=== PATIENT | male | born 1990 | race Caucasian/White ===

== ENCOUNTER 2022-04-07 23:35 | Emergency (ER) | payer OTHER ==
[~2022-04-07] VITALS: Ht 165.1 cm; Wt 90.7 kg
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
--- NOTE | 2022-04-08 01:53 | NUR ---
Patient discharged to home in stable condition. Written and verbal after care instructions given. Patient verbalizes understanding of instruction. Pt ambulatory with a steady gait
[2022-04-08 01:55] VITALS: BP 150/98
== END 2022-04-08 01:55 | disposition home or self-care (01) ==
LOC: ER 23:41
DX: S13.4XXA Sprain of ligaments of cervical spine, initial encounter (principal); S20.212A Contusion of left front wall of thorax, initial encounter; S00.83XA Contusion of other part of head, initial encounter; F17.200 Nicotine dependence, unspecified, uncomplicated; X83.8XXA Intentional self-harm by other specified means, initial encounter; Y93.89 Activity, other specified; Y92.89 Other specified places as the place of occurrence of the external cause; Y99.8 Other external cause status
CPT/HCPCS: 70360-TC; 70450-TC; 71100-TC

== ENCOUNTER 2022-06-02 14:07 | Emergency (ER) | payer OTHER ==
[~2022-06-02] VITALS: Ht 165.1 cm; Wt 93.0 kg
--- NOTE | 2022-06-02 14:36 | NUR ---
DR PATTON AT BEDSIDE
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
[2022-06-02 15:30] LABS: BASOPHILS % (AUTO) 0.4 % (0.0-2.0); EOSINOPHILS % (AUTO) 1.9 % (0.0-6.0); HEMATOCRIT 42 % (39-51); HEMOGLOBIN 13.9 g/dL (13.5-17.5); LYMPHOCYTES # (AUTO) 1.5 K/uL (0.8-4.8); LYMPHOCYTES % (AUTO) 21.6 % (20.0-44.0); MEAN CORPUSCULAR HGB CONC 33 g/dl (31.0-36.0); MEAN CORPUSCULAR VOLUME 90 fL (80-96); MONOCYTES # (AUTO) 0.6 K/uL (0.1-1.30); MONOCYTES % (AUTO) 8.3 % (2.0-12.0); NEUTROPHILS # (AUTO) 4.8 K/uL (1.8-8.9); NEUTROPHILS % (AUTO) 67.8 % (43.0-81.0); PLATELET COUNT (AUTO) 221 K/uL (150-450); RED BLOOD CELL COUNT(AUTO) 4.73 MIL/uL (4.5-6.0)
[2022-06-02 15:43] LABS: CALCIUM, SERUM 9.2 mg/dL (8.5-10.1); CARBON DIOXIDE 25 mmol/L (21-32); CHLORIDE 102 mmol/L (98-107); GLUCOSE 106 mg/dL (74-106); POTASSIUM 4.1 mmol/L (3.5-5.1); SODIUM SERUM 136 mmol/L (136-145); UREA NITROGEN, BLOOD 15 mg/dL (7-18)
[2022-06-02 15:49] LABS: ALANINE AMINOTRANSFERASE 18 U/L (12-78); ALBUMIN 3.9 g/dL (3.4-5.0); ALKALINE PHOSPHATASE 74 U/L (46-116); ASPARTATE AMINOTRANSFERASE 18 U/L (15-37); BILIRUBIN,DIRECT 0.1 mg/dL (0.0-0.2); BILIRUBIN,TOTAL 0.5 mg/dL (0.2-1.0); TOTAL PROTEIN, SERUM 7.3 g/dL (6.4-8.2)
[2022-06-02 15:51] LABS: ALCOHOL, BLOOD < 3 mg/dL (0-0)
--- NOTE | 2022-06-02 20:43 | NUR ---
CALLED [facility] CR[facility]IS TEAM FOR EVAL
--- NOTE | 2022-06-02 22:13 | NUR ---
PT TAKEN TO CT VIA CYN
[2022-06-03 03:57] LABS: BILIRUBIN,URINE NEGATIVE (NEGATIVE); COLOR,URINE YELLOW (YELLOW); LEUKOCYTE ESTERASE ,URINE NEGATIVE (NEGATIVE); NITRITE, URINE NEGATIVE (NEGATIVE); PROTEIN,URINE NEGATIVE (NEGATIVE); UGLUCOSE NEGATIVE (NEGATIVE); UROBILINOGEN,URINE 0.2 EU/dL (0.2)
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
--- NOTE | 2022-06-03 11:29 | NUR ---
was seen by crisis, 5150 hold broken. pt is aaox4, denies si/hi. ambulatory w steady gait. discharge home in stable condition.
[2022-06-03 11:31] VITALS: BP 132/70
== END 2022-06-03 11:31 | disposition home or self-care (01) ==
LOC: ER 16:31
DX: R45.851 Suicidal ideations (principal); S01.81XA Laceration without foreign body of other part of head, initial encounter; X83.8XXA Intentional self-harm by other specified means, initial encounter; Y92.89 Other specified places as the place of occurrence of the external cause; Y99.8 Other external cause status; F84.0 Autistic disorder; F41.9 Anxiety disorder, unspecified; I10 Essential (primary) hypertension; Z20.822 Contact with and (suspected) exposure to COVID-19
CPT/HCPCS: 99285; 70450; 85025; 80048; 80076; 81003; 36415; 87426; 80143; 80320; 80307; C9803; G0480

== ENCOUNTER 2023-11-17 07:23 | Emergency (ER) | payer OTHER ==
[~2023-11-17] VITALS: Ht 167.6 cm; Wt 98.0 kg
[2023-11-17 07:53] LABS: BASOPHILS % (AUTO) 0.4 % (0.0-2.0); EOSINOPHILS % (AUTO) 0.5 % (0.0-6.0); HEMATOCRIT 41 % (39-51); HEMOGLOBIN 13.7 g/dL (13.5-17.5); LYMPHOCYTES # (AUTO) 1.4 K/uL (0.8-4.8); LYMPHOCYTES % (AUTO) 18.3 % (20.0-44.0); MEAN CORPUSCULAR HEMOGLOBIN 30 PG (26.0-33.0); MEAN CORPUSCULAR HGB CONC 34 g/dl (31.0-36.0); MEAN CORPUSCULAR VOLUME 89 fL (80-96); MONOCYTES # (AUTO) 0.5 K/uL (0.1-1.30); MONOCYTES % (AUTO) 7.1 % (2.0-12.0); NEUTROPHILS # (AUTO) 5.6 K/uL (1.8-8.9); NEUTROPHILS % (AUTO) 73.7 % (43.0-81.0); PLATELET COUNT (AUTO) 214 K/uL (150-450); RED BLOOD CELL COUNT(AUTO) 4.57 MIL/uL (4.5-6.0); RED CELL DISTRIBUTION WIDTH 13.6 % (11.5-15.0); WHITE BLOOD COUNT (AUTO) 7.6 K/uL (4.3-11.0)
[2023-11-17] MEDS: IV NS 0.9% 1,000 ML BAG IV ONE (07:59)
[2023-11-17 08:04] LABS: INR 1.03 (0.91-1.10); PARTIAL THROMBOPLASTIN TIME 27.3 SEC (24.3-34.3); PROTHROMBIN TIME 10.9 SECS (9.2-11.1)
[2023-11-17 08:06] LABS: SERUM AMMONIA 13 umol/L (11-32)
[2023-11-17 08:10] LABS: CALCIUM, SERUM 9.4 mg/dL (8.5-10.1); CARBON DIOXIDE 25 mmol/L (21-32); CHLORIDE 106 mmol/L (98-107); GLUCOSE 131 mg/dL (74-106); POTASSIUM 3.5 mmol/L (3.5-5.1); SODIUM SERUM 140 mmol/L (136-145); UREA NITROGEN, BLOOD 12 mg/dL (7-18)
[2023-11-17 08:22] LABS: ALCOHOL, BLOOD < 3 mg/dL (0-10)
[2023-11-17 08:24] LABS: ACETAMINOPHEN <10 ug/ml (10-30); ALANINE AMINOTRANSFERASE 30 U/L (12-78); ALBUMIN 3.7 g/dL (3.4-5.0); ALKALINE PHOSPHATASE 87 U/L (46-116); ASPARTATE AMINOTRANSFERASE 19 U/L (15-37); BILIRUBIN,DIRECT 0.2 mg/dL (0.0-0.2); BILIRUBIN,TOTAL 0.7 mg/dL (0.2-1.0); SALICYLATE 0.4 mg/dL (2.8-20.0); TOTAL PROTEIN, SERUM 7.4 g/dL (6.4-8.2)
[2023-11-17 08:55] LABS: APPEARANCE,URINE CLEAR (CLEAR); BILIRUBIN,URINE NEGATIVE (NEGATIVE); BLOOD, URINE NEGATIVE Ery/uL (NEGATIVE); COLOR,URINE YELLOW (YELLOW); KETONES,URINE NEGATIVE (NEGATIVE); LEUKOCYTE ESTERASE ,URINE NEGATIVE (NEGATIVE); NITRITE, URINE NEGATIVE (NEGATIVE); PROTEIN,URINE NEGATIVE (NEGATIVE); UGLUCOSE NEGATIVE (NEGATIVE); UROBILINOGEN,URINE 0.2 EU/dL (0.2)
[2023-11-17 09:05] LABS: BARBITURATE, URINE NEGATIVE (NEGATIVE); BENZODIAZEPINE, URINE NEGATIVE (NEGATIVE); COCCAINE, URINE NEGATIVE (NEGATIVE); OPIATE, URINE NEGATIVE (NEGATIVE); PHENCYCLIDINE SCREEN,URINE NEGATIVE (NEGATIVE)
[2023-11-17 09:06] LABS: AMPHETAMINE, URINE POSITIVE (NEGATIVE); CANNABINOID, URINE POSITIVE (NEGATIVE)
[2023-11-17 21:44] VITALS: BP 136/90; TEMP 98.5; O2SAT 95
== END 2023-11-17 21:45 | disposition short-term general hospital (02) ==
LOC: ER 07:34
DX: G93.41 Metabolic encephalopathy (principal); I10 Essential (primary) hypertension; F41.9 Anxiety disorder, unspecified; F84.0 Autistic disorder; R41.82 Altered mental status, unspecified; R53.83 Other fatigue; F17.200 Nicotine dependence, unspecified, uncomplicated
CPT/HCPCS: 99285; 96360; 93005 ×2; 71045; 70450; 82140; 85025; 80048; 80076; 83735; 84100; 81003; 36415; 84443; 84484; 85730; 80143; 80320; 80307; J7030; A4223; G0480

== ENCOUNTER 2024-01-18 22:58 | Inpatient (IN) | payer OTHER ==
[~2024-01-18] VITALS: Ht 165.1 cm; Wt 96.6 kg
[2024-01-19] VITALS (8 sets, daily range): BP systolic 136–158; BP diastolic 64–103; TEMP 98.1–98.7; O2SAT 96–98
--- NOTE | 2024-01-19 00:20 | NUR ---
BIBFATHER FOR OVERDOSE ON SERAQUEL, PT STATES HE TOOK 30-40 400MG ER PILLS. DENIES SI AT TRAIGE BUT DOES ADMIT TO RECENT INCREASE IN STRESS. PT IS ALERT AND ORIENTED. RR EVEN AND NON LABORED. DENIES ANY DISCOMFORT AT THIS TIME. CONNECTED TO POX AND HEART MONITOR. VSS. SEIZURE PRECAUTIONS IN PLACE.
--- NOTE | 2024-01-19 00:23 | NUR ---
DR LOPEZ AT BED SIDE
--- NOTE | 2024-01-19 00:27 | NUR ---
Richelle marsh in [facility] - 01/19/24 at 0044 by ANSUHL S/W MERLINE FRANCO , PROVIDED W/ VERBAL CLINICALS, AUTH TO ADMIT GIVEN, AUTH#[id number]
--- NOTE | 2024-01-19 00:44 | NUR ---
IV LINE ESTABLISHED, [id number]
--- NOTE | 2024-01-19 00:46 | NUR ---
CALLED POISON CONTROL WITH THE FOLLOWING RECOMMENDATIONS: - OBSERVE PT FOR AT LEAST 12 HOURS - EKG Q 4-6 HOURS. MGSO4 PRN FOR QTC>500 -BENZOS PRN FOR SEIZURE - LABS INCLUDING CHEMISTRY, TYLENOL LEVEL, ASA LEVEL, SERUM ALCOHOL, URINE TOX DR LOPEZ MADE AWARE.
[2024-01-19 00:48] LABS: BASOPHILS # (AUTO) 0.1 K/uL (0.0-0.2); BASOPHILS % (AUTO) 0.5 % (0.0-2.0); EOSINOPHILS # (AUTO) 0.1 K/uL (0.0-0.7); EOSINOPHILS % (AUTO) 0.6 % (0.0-6.0); HEMATOCRIT 43 % (39-51); HEMOGLOBIN 14.4 g/dL (13.5-17.5); LYMPHOCYTES # (AUTO) 1.8 K/uL (0.8-4.8); LYMPHOCYTES % (AUTO) 15.9 % (20.0-44.0); MEAN CORPUSCULAR HEMOGLOBIN 30 PG (26.0-33.0); MEAN CORPUSCULAR HGB CONC 33 g/dl (31.0-36.0); MEAN CORPUSCULAR VOLUME 90 fL (80-96); MONOCYTES # (AUTO) 0.8 K/uL (0.1-1.30); MONOCYTES % (AUTO) 7.5 % (2.0-12.0); NEUTROPHILS # (AUTO) 8.4 K/uL (1.8-8.9); NEUTROPHILS % (AUTO) 75.5 % (43.0-81.0); PLATELET COUNT (AUTO) 244 K/uL (150-450); RED BLOOD CELL COUNT(AUTO) 4.81 MIL/uL (4.5-6.0); RED CELL DISTRIBUTION WIDTH 13.7 % (11.5-15.0); WHITE BLOOD COUNT (AUTO) 11.1 K/uL (4.3-11.0)
--- NOTE | 2024-01-19 00:49 | NUR ---
FATHER, JAY: [phone] MOTHER, YVONNE: [phone]
[2024-01-19 00:57] LABS: CALCIUM, SERUM 9.1 mg/dL (8.5-10.1); CARBON DIOXIDE 25 mmol/L (21-32); CHLORIDE 104 mmol/L (98-107); CREATININE 0.8 mg/dL (0.6-1.3); GLUCOSE 107 mg/dL (74-106); POTASSIUM 3.8 mmol/L (3.5-5.1); SODIUM SERUM 137 mmol/L (136-145); UREA NITROGEN, BLOOD 17 mg/dL (7-18)
[2024-01-19 01:08] LABS: ACETAMINOPHEN <10 ug/ml (10-30); ALANINE AMINOTRANSFERASE 31 U/L (12-78); ALBUMIN 4.3 g/dL (3.4-5.0); ALCOHOL, BLOOD < 3 mg/dL (0-10); ALKALINE PHOSPHATASE 80 U/L (46-116); ASPARTATE AMINOTRANSFERASE 21 U/L (15-37); BILIRUBIN,DIRECT 0.1 mg/dL (0.0-0.2); BILIRUBIN,TOTAL 0.7 mg/dL (0.2-1.0); SALICYLATE 0.7 mg/dL (2.8-20.0); TOTAL PROTEIN, SERUM 7.7 g/dL (6.4-8.2)
--- NOTE | 2024-01-19 02:11 | NUR ---
DR LOPEZ ON THE PHONE WITH DR ALY FROM [facility]
--- NOTE | 2024-01-19 02:29 | NUR ---
provided mother w/ update and plan of care
[2024-01-19 02:43] LABS: APPEARANCE,URINE CLEAR (CLEAR); BILIRUBIN,URINE NEGATIVE (NEGATIVE); BLOOD, URINE NEGATIVE Ery/uL (NEGATIVE); COLOR,URINE YELLOW (YELLOW); KETONES,URINE NEGATIVE (NEGATIVE); LEUKOCYTE ESTERASE ,URINE NEGATIVE (NEGATIVE); NITRITE, URINE NEGATIVE (NEGATIVE); PH,URINE 5.5 (5.0-8.0); PROTEIN,URINE NEGATIVE (NEGATIVE); UGLUCOSE NEGATIVE (NEGATIVE); UROBILINOGEN,URINE 0.2 EU/dL (0.2)
[2024-01-19 02:57] LABS: AMPHETAMINE, URINE POSITIVE (NEGATIVE); BARBITURATE, URINE NEGATIVE (NEGATIVE); BENZODIAZEPINE, URINE NEGATIVE (NEGATIVE); CANNABINOID, URINE POSITIVE (NEGATIVE); COCCAINE, URINE NEGATIVE (NEGATIVE); OPIATE, URINE NEGATIVE (NEGATIVE); PHENCYCLIDINE SCREEN,URINE NEGATIVE (NEGATIVE)
--- NOTE | 2024-01-19 03:18 | NUR ---
s/w mindi gave accepting info: going to [facility] er to er accepted by dr hamilton , report # [phone]
--- NOTE | 2024-01-19 03:23 | NUR ---
[facility] - WILL CALL ACTIVATED ETA @6000
--- NOTE | 2024-01-19 03:32 | NUR ---
report given to Maureen TUCKER supercharger mechanic at [facility]
--- NOTE | 2024-01-19 06:36 | NUR ---
[facility] is now declining the patient, giving veral auth to admit here
--- NOTE | 2024-01-19 07:37 | NUR ---
[facility] called, new eta [phone]
--- NOTE | 2024-01-19 08:00 | NUR ---
NURSING SUP CALLED FOR TELE BED. PER SUPIRVISOR PATIENT NEEDS 1:1 SITTER.
--- NOTE | 2024-01-19 08:07 | NUR ---
CALLED [facility] [phone] CANCELLED TRANSPORT.
--- NOTE | 2024-01-19 08:11 | NUR ---
CALLED NORMA FLORES, ON HIS WAY.
[2024-01-19] MEDS ORDERED: DEXT25CA PO (08:31)
[2024-01-19] MEDS ORDERED: QUET300T72 PO (08:31)
[2024-01-19] MEDS ORDERED: ACETAMINOPHEN 325 MG TABLET PO PRN (09:30)
[2024-01-19] MEDS ORDERED: MAG HYDROX/AL HYDROX/SIMETH 30 ML UDC PO PRN (09:30)
[2024-01-19] MEDS ORDERED: ONDANSETRON HCL/PF 4 MG/2 ML VIAL IVP PRN (09:30)
[2024-01-19] MEDS ORDERED: Z GUARD REMEDY 4 OZ OINT TP PRN (09:30)
[2024-01-19] MEDS ORDERED: MAGNESIUM HYDROXIDE 30 ML UDC PO PRN (09:30)
--- NOTE | 2024-01-19 10:28 | NUR ---
"licensed clinical social worker consultation: licensed clinical social worker consultation requested due to overdose. The patient was alert and oriented x3. Patient was calm and cooperative during the assessment for this medical underwriter. The patient stated prior to being at the hospital he was having a Panick attack due to stress and then took a bunch of pills but does not remember what he took. 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 The patient stated that he was feeling overwhelmed which is why he took those pills. Patient stated he resides at [address] [place] [address] ([phone]) with his mother. The patient said he is fully ambulatory and does not work as he takes care of his mother multimedia programmer. Patient denied having any mental illnesses. Patient denied any substance abuse, but patients labs indicate that patient is positive for amphetamine and cannabinoids. Patient denied any visual/auditory hallucinations. Patient denied any SI/HI ideation. The patient was accepting of substance abuse resources provided to him. DC PLAN: Per ER physician Doctor Gini patient will be admitted to the hospital for medical reasons Shelters: [facility] Provider: [facility] [place] Address: [address] [place] [address] # of Beds: 47 Population Served: [facility] 6 | [facility] Shira Parmar [place] Provider: [facility] Address: [address] [place] [address] # of Beds: 66 Population Served: [facility] [place] Provider: [facility] Address: [address] [id number]# of Beds: 56 Population Served: [facility] Provider: [facility] Address: [address] [address] # of Beds: 49 Population Served: Katelyn Hygiene: [facility]: [address]. [place] ; [facility] [address] [facility] ; [facility] 9304 [facility] . Food Resources: [facility] [employer] [facility] at [facility]- [address] [place]; Meet Each Need with D[facility] ([facility]) [address] Jair Hamilton; [facility] Food [facility] 1178 [facility]; [facility] 5468 [facility]."
[2024-01-19] MEDS ORDERED: LORAZEPAM INJ 2 MG/ML VIAL ONE (12:26)
--- NOTE | 2024-01-19 12:30 | NUR ---
PT FOUND BY NURSE W/ INVOLUNTARY BODY JERKING, ALTERED AND TACHYCARDIC W/ NOTED LOWER LIP LACERATION. DR KUMAR AT BEDSIDE FOR EVAL.
--- NOTE | 2024-01-19 12:35 | NUR ---
VERBAL ORDER FORM MD FOR 1MG ATIVAN IV, ORDER CANCELED AT BEDSIDE BY .
[2024-01-19] MEDS: LORAZEPAM INJ 2 MG/ML VIAL IV PRN ×2 (12:39→15:34)
[2024-01-19] MEDS: IV NS 0.9% 1,000 ML BAG IV ONE (12:40)
--- NOTE | 2024-01-19 12:40 | NUR ---
PT TAKEN TO CT VIA CYN
--- NOTE | 2024-01-19 12:58 | NUR ---
PT RETURNED FROM CT VIA [facility]
--- NOTE | 2024-01-19 14:15 | NUR ---
DR HAMILTON MADE AWARE OF HR 136. WAITING FOR ORDERS.
[2024-01-19 14:50] LABS: BASOPHILS % (AUTO) 0.1 % (0.0-2.0); EOSINOPHILS % (AUTO) 0.1 % (0.0-6.0); HEMATOCRIT 39 % (39-51); HEMOGLOBIN 13.1 g/dL (13.5-17.5); LYMPHOCYTES # (AUTO) 0.9 K/uL (0.8-4.8); LYMPHOCYTES % (AUTO) 11.7 % (20.0-44.0); MEAN CORPUSCULAR HEMOGLOBIN 30 PG (26.0-33.0); MEAN CORPUSCULAR HGB CONC 34 g/dl (31.0-36.0); MEAN CORPUSCULAR VOLUME 89 fL (80-96); MONOCYTES # (AUTO) 0.6 K/uL (0.1-1.30); MONOCYTES % (AUTO) 7.4 % (2.0-12.0); NEUTROPHILS # (AUTO) 6.5 K/uL (1.8-8.9); NEUTROPHILS % (AUTO) 80.7 % (43.0-81.0); PLATELET COUNT (AUTO) 200 K/uL (150-450); RED BLOOD CELL COUNT(AUTO) 4.38 MIL/uL (4.5-6.0)
--- NOTE | 2024-01-19 14:51 | NUR ---
NS 125ML/HR PRN PER DR HAMILTON. THE ORDER READ BACK, VERIFIED. NOTED AND CARRIED OUT.
--- NOTE | 2024-01-19 14:55 | NUR ---
COVID SWAB DONE AND SENT TO THE LAB
--- NOTE | 2024-01-19 15:00 | NUR ---
DR HAMILTON AT BEDSIDE TO EVALUATE PATIENT. NOTED MORE ALTERED AND TACHYCARDIC. DR HAMILTON WANTS PATIENT UPGRADED TO ICU.
[2024-01-19] MEDS: IV NS 0.9% 1,000 ML BAG IV PRN (15:18)
[2024-01-19 15:39] LABS: CALCIUM, SERUM 8.5 mg/dL (8.5-10.1); CREATININE 0.9 mg/dL (0.6-1.3); MAGNESIUM 1.8 mg/dL (1.8-2.4); PHOSPHORUS 2.7 mg/dL (2.5-4.9); POTASSIUM 3.7 mmol/L (3.5-5.1)
--- NOTE | 2024-01-19 16:35 | NUR ---
report given to varun for madeline
--- NOTE | 2024-01-19 16:59 | NUR ---
pt transported to icu with acls protocols in place.
--- NOTE | 2024-01-19 17:05 | NUR ---
PRESTO LOG OPERATORUNIT CLERK NOTES PATIENT TRANSFERRED FROM [facility] TO [facility]. A&OX1, MUMBLES WORDS. ON RA SATURATION 97%. PIV RAC AND LEFT HAND GAUGE 20, PATENT AND INTACT. NS STARTED AT 125 ML/HR. BRUISE NOTED ON THE RIGHT PERIORBITAL AREA. SEIZURE AND SUICIDAL PRECAUTIONS IN PLACE. FAXED FACE SHEET TO [facility]IT, REQUESTED PSYCHIATRIC CONSULT, DR AVILA WORKING TODAY. BELONGINGS SHEET IN THE CHART. SAFETY MEASURES IN PLACE. Addendum: 01/19/24 at 1902 by CEDRICK HILL RN PRESTO LOG OPERATORUNIT CLERK NOTES PATIENT TRANSFERRED FROM [facility] TO [facility]. ASLEEP, AROUSABLE TO VOICE, WHEN AWAKE A&OX1, MUMBLES WORDS. ON RA SATURATION 97%. ST ON THE MONITOR HR 115-125 BPM. PIV RAC AND LEFT HAND GAUGE 20, PATENT AND INTACT. NS STARTED AT 125 ML/HR. BRUISE NOTED ON THE RIGHT PERIORBITAL AREA. SEIZURE AND SUICIDAL PRECAUTIONS IN PLACE. FAXED FACE SHEET TO [facility], REQUESTED PSYCHIATRIC CONSULT, DR AVILA WORKING TODAY. BELONGINGS SHEET IN THE CHART. SAFETY MEASURES IN PLACE.
[2024-01-19] MEDS: IV NS 0.9% 1,000 ML IV PRN (17:29)
--- NOTE | 2024-01-19 18:55 | NUR ---
CASH SALES AUDIT CLERK CLOSING NOTES PATIENT IN BED. ASLEEP, AROUSABLE TO VOICE, WHEN AWAKE A&OX1, MUMBLES WORDS. ON RA SATURATION 97%. ST ON THE MONITOR HR 115-125 BPM. PIV RAC AND LEFT HAND GAUGE 20, PATENT AND INTACT, RUNNING NS STARTED AT 125 ML/HR. SEIZURE AND SUICIDAL PRECAUTIONS IN PLACE, 1:1 SITTER AT THE BEDSIDE, SPECIAL OBSERVATION RECORD Q15 MINUTES RECORD BEING CHARTED. SAFETY MEASURES IN PLACE: BED LOCKED IN THE LOWEST POSITION, SIDE RAILS UP X3, BED ALARM ON.
--- NOTE | 2024-01-19 18:55 | NUR ---
FRONT END APPLICATION DEVELOPER NOTES SPOKE OVER THE PHONE TO PATIENT'S FATHER JAY, HE EXPLAINED THAT DUE TO AUTISM PATIENT GETS AGITATED EASILY IN UNEXPECTED SITUATIONS. PT HAD AN ARGUMENT WITH HIS GIRLFRIEND, BECAME AGITATED, TOOK THE PILLS BUT IMMEDIATELY REPORTED THAT AND WAS ABLE TO REGURGITATE 7. PER THE DAD PATIENT WAS TRYING TO CALM HIMSELF DOWN. 1855 SPOKE TO PATIENT'S MOTHER YVONNE, PROVIDED AN UPDATE
--- NOTE | 2024-01-19 19:45 | NUR ---
ICU/SPECIAL EDUCATION SUPERINTENDENT RECIEVED REPORT FROM DAY CAITLIN MEANS. PT REQUIRES A SITTER. PT APPEARS TO BE ASLEEP, WITH PERIODS OF RESTLESS BEHAVIOR, SWINGING ARMS AROUND WITH PERIODS OF YELLING OUT BURST. SEIZURE PRECAUTIONS ARE IN PLACE. WILL MONITOR THIS PERSON.
--- NOTE | 2024-01-19 21:00 | NUR ---
ICU/GLASS SETTER PT WAS HITTING HIMSELF WITH CLOSED FIST. THIS IS THE SIDE OF FACE WHERE BRUISE AND SWELLING IS FOUND. THE RIGHT CORNER OF EYE AND FACE. THERE IS PHOTO DOCUMENTATION IN PTS CHART.
[2024-01-19] MEDS ORDERED: ZOLPIDEM TARTRATE 5 MG TABLET PO PRN (22:00)
--- NOTE | 2024-01-19 22:54 | NUR ---
ICU/SHIRT IRONER GIRLFRIEND CALLED ASKING ABOUT PT. TOLD HER THAT I WASN'T ABLE TO PROVIDE INFORMATION EXCEPT THAT PT IS STABLE. GIRLFRIEND THEN BECAME AGGRESSIVE AND YELLING. AT THE END OF THE PHONE CONVERSATION SHE WAS YELLING, HAD TO HANG UP PHONE.
[2024-01-20] VITALS (29 sets, daily range): BP systolic 109–162; BP diastolic 62–119; TEMP 98.3–99.2; O2SAT 93–98
--- NOTE | 2024-01-20 00:40 | NUR ---
ICU/OFFENDER JOB RETENTION SPECIALIST PT WAS PULLED UP AND REPOSIONED, PT IS MOVING AROUND IN BED AND HAS MADE A FEW ATTEMPTS TO GET OUT OF BED WITH FEET AND LEGS HANGING OVER THE SIDE RAILS. PT REQUIRES FREQUENT ORT. TO PUT LEGS BACK AND TO CALM DOWN.
--- NOTE | 2024-01-20 02:00 | NUR ---
ICU/DIRECTOR OF PREMIUM SEAT SALES PT YELLS OUT AND RAMBLES, MOVES ARMS IN THE AIR. UNABLE TO UNDERSTAND WHAT IS BEING SAID. PT REQUIRES SITTER AT BEDSIDE TO PREVENT SELF HARM. PT HAS STOP HITTING HIMSELF.
--- NOTE | 2024-01-20 04:10 | NUR ---
ICU/CATH LAB RADIOLOGY TECHNICIAN ASKED LAB TO COME BACK LATER, PT APPEARS TO BE MORE RESTLESS AND AGITATED MORE THAN BEFORE. PERIODS OF OUTBURST AND YELLING, SWINGING ARMS
--- NOTE | 2024-01-20 06:42 | NUR ---
ICU/HEATING ELEMENT WINDER AM LABS WERE DRAWN. AWAIT FOR ANY ABNORMAL RESULTS.
--- NOTE | 2024-01-20 07:00 | NUR ---
RN NOTES RECEIVED PT ON BED, LEANDERZY, KNOWS HIS NAME, FOLLOWS SIMPLE COMMAND ,WITH PERIODS OF RESTLESS BEHAVIOR, SWINGING ARMS AROUND , ON RA, NO SOB NOTED, O2 SAT WNL, ON TELE ST HR IN 110'S , IV SITE CDI, NS AT 125CC/HR , PT IS 1:1 CARE , SEIZURE PRECAUTIONS ARE IN PLACE. CONTINUE TO MONITOR
[2024-01-20 07:19] LABS: BASOPHILS % (AUTO) 0.2 % (0.0-2.0); EOSINOPHILS % (AUTO) 0.5 % (0.0-6.0); HEMATOCRIT 38 % (39-51); HEMOGLOBIN 12.8 g/dL (13.5-17.5); LYMPHOCYTES # (AUTO) 1.2 K/uL (0.8-4.8); LYMPHOCYTES % (AUTO) 14.9 % (20.0-44.0); MEAN CORPUSCULAR HEMOGLOBIN 30 PG (26.0-33.0); MEAN CORPUSCULAR HGB CONC 33 g/dl (31.0-36.0); MEAN CORPUSCULAR VOLUME 89 fL (80-96); MONOCYTES # (AUTO) 0.6 K/uL (0.1-1.30); MONOCYTES % (AUTO) 7.7 % (2.0-12.0); NEUTROPHILS # (AUTO) 6.4 K/uL (1.8-8.9); NEUTROPHILS % (AUTO) 76.7 % (43.0-81.0); PLATELET COUNT (AUTO) 193 K/uL (150-450); RED BLOOD CELL COUNT(AUTO) 4.32 MIL/uL (4.5-6.0); RED CELL DISTRIBUTION WIDTH 14.2 % (11.5-15.0); WHITE BLOOD COUNT (AUTO) 8.4 K/uL (4.3-11.0)
[2024-01-20 07:54] LABS: CALCIUM, SERUM 8.2 mg/dL (8.5-10.1); MAGNESIUM 1.9 mg/dL (1.8-2.4); PHOSPHORUS 2.4 mg/dL (2.5-4.9); POTASSIUM 3.8 mmol/L (3.5-5.1)
[2024-01-20] MEDS: HALOPERIDOL LACTATE INJ 5 MG/ML VIAL IM PRN (08:28)
[2024-01-20] MEDS ORDERED: diphenhydrAMINE HCL 50 MG/ML VIAL IV PRN (08:30)
[2024-01-20] MEDS: diphenhydrAMINE HCL 50 MG/ML VIAL IM PRN (08:32)
--- NOTE | 2024-01-20 12:25 | NUR ---
RN NOTES PT RESTLESS AND AGITATED, YELLING OUT, ATIVAN 1MG ,IV GIVEN PER ORDER , CONTINUE TO MONITOR
[2024-01-20 12:58] LABS: THYROID STIMULATING HORMONE 2.19 uIU/mL (0.358-3.74)
--- NOTE | 2024-01-20 14:57 | NUR ---
YVONNE CHRISTY [phone] CALLED TRANSFERED TO ICU.
[2024-01-20] MEDS: Sodium Phosphate 15 MMOL in IV NS 0.9% 245 ML IV SCH (15:36)
[2024-01-20] MEDS ORDERED: K PHOS NEUTRAL 250 MG TABLET PO ONE (16:00)
--- NOTE | 2024-01-20 16:13 | NUR ---
paint factory worker note: paint factory worker was unable to meet with this patient. paint factory worker will follow up at a later time.
--- NOTE | 2024-01-20 18:00 | NUR ---
RN NOTES PT REMAINS ,CONFUSED, RESTLESS, FOLLOWS COMMAND AT TIMES , PULLING ON IV SITES, ON SZ PRECAUTIONS , IVF AT 125CC/HR RUNNING, SAFETY MEASURES IN PLACED, 1:1 OBSERVATION , IDA. SOFT WRIST RESTRAINS ON FOR PT SAFETY, WILL ENDORSE TO STRIP MACHINE OPERATOR NURSE FOR CONTINUITY OF CARE .
--- NOTE | 2024-01-20 19:10 | NUR ---
DUCK FARMER RCD PT W/ DX OVERDOSE; PT IS ST ON MONITOR. STRONG PALPABLE PULSES NOTED. ON ROOM AIR CLEAR LUNG SOUNDS. DIAPER IN PLACE PT DOES VERBALIZE NEEDS. NS @ 125 ML/HR VIA R AC IV. PT ON BSWR TO PREVENT SELF INJURIES PER PREVIOUS REPORTS PT HAS BEEN HITTING SELF. BRUISING NOTED ON RIGHT EYE. AT THIS TIME PT IS STRUGGLING TO SIT UP WELL TRYING TO GET OUT OF BED PT IS UNABLE TO BE REORIENTED DOES NOT VERBALIZE UNDERSTANDING. ONLY MUMBLES. ATIVAN 1 MG IV GIVEN AT THIS TIME. PT WITH 1:1 NURSING AT THIS TIME.
--- NOTE | 2024-01-20 19:15 | NUR ---
ANDROID DEVELOPER WILL APPLY SCDs WHEN PUMP IS AVAILABLE
--- NOTE | 2024-01-20 20:35 | NUR ---
ENGINE LATHE TENDER RCD CALL FROM PTS MOTHER; UPDATED ON PTS CONDITION.
--- NOTE | 2024-01-20 22:18 | NUR ---
LIAISON INSPECTION LABORATORY ASSISTANT PT CONTINUES TO BE SEVERELY AGITATED. ATTEMPTING TO GET OUT OF BED. SPEAKING IN COMPLETE SENTENCES AND THEN MUMBLES. WILL NOT OPEN EYES AND UNABLE TO BE REORIENTED.
--- NOTE | 2024-01-20 23:51 | NUR ---
ORNAMENTAL PLASTER STICKER PT NOTED WITH SATURATION SUSTAINING 89%; 02 2L NC APPLIED.
[2024-01-21] VITALS (19 sets, daily range): BP systolic 108–147; BP diastolic 5–100; TEMP 98.1–98.9; O2SAT 93–97
--- NOTE | 2024-01-21 01:00 | NUR ---
MOTION AND TIME STUDY TEACHER PT APPEARING MORE CALM AT THIS TIME. BSWR REMOVED. 1:1 NURSING REMAINS.
[2024-01-21 04:50] LABS: BASOPHILS % (AUTO) 0.4 % (0.0-2.0); EOSINOPHILS # (AUTO) 0.1 K/uL (0.0-0.7); EOSINOPHILS % (AUTO) 0.8 % (0.0-6.0); HEMATOCRIT 37 % (39-51); HEMOGLOBIN 12.2 g/dL (13.5-17.5); LYMPHOCYTES # (AUTO) 1.4 K/uL (0.8-4.8); LYMPHOCYTES % (AUTO) 15.7 % (20.0-44.0); MEAN CORPUSCULAR HEMOGLOBIN 30 PG (26.0-33.0); MEAN CORPUSCULAR HGB CONC 33 g/dl (31.0-36.0); MEAN CORPUSCULAR VOLUME 90 fL (80-96); MONOCYTES # (AUTO) 0.7 K/uL (0.1-1.30); MONOCYTES % (AUTO) 8.6 % (2.0-12.0); NEUTROPHILS # (AUTO) 6.4 K/uL (1.8-8.9); NEUTROPHILS % (AUTO) 74.5 % (43.0-81.0); PLATELET COUNT (AUTO) 198 K/uL (150-450); RED CELL DISTRIBUTION WIDTH 14.2 % (11.5-15.0); WHITE BLOOD COUNT (AUTO) 8.6 K/uL (4.3-11.0)
[2024-01-21 05:15] LABS: CALCIUM, SERUM 8.2 mg/dL (8.5-10.1); CREATININE 0.9 mg/dL (0.6-1.3); MAGNESIUM 1.7 mg/dL (1.8-2.4); PHOSPHORUS 3.2 mg/dL (2.5-4.9); POTASSIUM 3.7 mmol/L (3.5-5.1)
--- NOTE | 2024-01-21 06:41 | NUR ---
BINDERY MACHINE SETTER PER LAB RESULTS GLUCOSE IS 69 PT GIVEN 120 ML OF ORANGE JUICE. TOLERATED WELL. PT ALERT SPEAKING IN FULL SENTENCES. Addendum: 01/21/24 at 0644 by TETO ESCALONA RN 240 ML OF JUICE WAS GIVEN
--- NOTE | 2024-01-21 07:10 | NUR ---
DIRECTOR HEART OPENING NOTES PT IN BED, ASLEEP. AROUSABLE TO VOICE, FOLLOWS COMMANDS. ON NC AT 2 LPM, SATURATION 96%. NSR ON THE MONITOR HR IN 90S BPM. PIV ACCESSES RAC AND LEFT HAND GAUGE 20, BOTH PATENT AND INTACT, RUNNING NS AT 125 ML/HR. ON SEIZURE PRECAUTIONS. SAFETY MEASURES IN PLACE, INCLUDING BED ALARM, ON 1:1 OBSERVATION.
[2024-01-21] MEDS ORDERED: Magnesium 1 GM/2 ML VIAL IV ONE ×2 (08:00)
[2024-01-21] MEDS: Magnesium 1GM/D5W 100ML PREMIX 100 ML IV SCH (08:26)
[2024-01-21 10:10] LABS: FOLIC ACID 11.5 ng/mL (>3.0)
[2024-01-21] MEDS ORDERED: MAGNESIUM OXIDE 400 MG TABLET PO ONE (11:00)
--- NOTE | 2024-01-21 18:58 | NUR ---
MS RN CLOSING NOTES PT IN BED, ASLEEP. AROUSABLE TO VOICE, FOLLOWS COMMANDS. WHEN AWAKE A7OX4. ON RA, SATURATION 96%, NO SOB. PIV ACCESSES RAC GAUGE 20, PATENT AND INTACT, RUNNING NS AT 125 ML/HR. ON SEIZURE PRECAUTIONS. SAFETY MEASURES IN PLACE, INCLUDING BED ALARM, ON 1:1 OBSERVATION.
--- NOTE | 2024-01-21 20:00 | NUR ---
PAPER TWISTER TENDER OPENING NOTES RECEIVED PT IN BED AWAKE A/O X4. WITH GIRLFRIEND AT BEDSIDE (VISITING). ON RA, SATURATION 96%, NO SOB NOTED. IV ACCESS RAC GAUGE 20, PATENT AND INTACT, RUNNING NS AT 125 ML/HR. ON SEIZURE PRECAUTIONS. SAFETY MEASURES IN PLACE, INCLUDING BED ALARM, ON 1:1 OBSERVATION. WILL CONTINUE PLAN OF CARE.
[2024-01-22] VITALS: BP 134/86; TEMP 98.2; O2SAT 99
[2024-01-22 04:00] VITALS: BP 118/77; TEMP 98.2; O2SAT 99
--- NOTE | 2024-01-22 07:36 | NUR ---
MS RN OPENING NOTE RECEIVED PATIENT AWAKE IN BED, A/O X4, ABLE TO MAKE NEEDS KNOW, AFEBRILE, AMBULATORY. ON ROOM AIR, TOLERATING WELL, BREATHING EVENLY AND UNLABORED WITH SPO2 OF 98%. NO SIGNS OF RESPIRATORY DISTRESS NOTED. PT DENIES ANY PAIN OR ANY DISCOMFORTS AT THIS TIME. PT DENIES ANY OR SOB NOTED AT THIS MOMENT. IV ACCESS ON RAC G# 20 WITH RUNNING NS @ 125ML/HR PATENT, INTACT, AND INFUSING WELL WITH NO S/SX OF PHLEBITIS AND INFILTRATION NOTED. PATIENT EXPRESSES NO OTHER NEEDS AT THIS TIME. NO FURTHER CONCERNS OF PRESENT. HOB SLIGHTLY ELEVATED. FALL AND SAFETY MEASURES IMPLEMENTED, BED LOCKED AND IN LOWEST POSITION, SIDE RAILS UP X2, CALL LIGHT AND TRAY TABLE WITHIN EASY REACH. BED ALARM ON. PLAN OF CARE ONGOING.
--- NOTE | 2024-01-22 07:40 | NUR ---
SENIOR PROGRAM ANALYST CLOSING NOTES PT IN BED AWAKE A/O X4. WITH GIRLFRIEND AT BEDSIDE (VISITING). ON RA, SATURATION 96%, NO SOB NOTED. IV ACCESS RAC GAUGE 20, PATENT AND INTACT, RUNNING NS AT 125 ML/HR. ON SEIZURE PRECAUTIONS. SAFETY MEASURES IN PLACE, INCLUDING BED ALARM, ON 1:1 OBSERVATION. ALL NEEDS ATTENDED. ENDORSED TO INCOMING RN FOR CONTINUE PLAN OF CARE CONTINUE PLAN OF CARE.
[2024-01-22 07:50] LABS: BASOPHILS % (AUTO) 0.3 % (0.0-2.0); EOSINOPHILS # (AUTO) 0.2 K/uL (0.0-0.7); EOSINOPHILS % (AUTO) 1.9 % (0.0-6.0); HEMATOCRIT 39 % (39-51); HEMOGLOBIN 12.8 g/dL (13.5-17.5); LYMPHOCYTES # (AUTO) 1.5 K/uL (0.8-4.8); LYMPHOCYTES % (AUTO) 18.9 % (20.0-44.0); MEAN CORPUSCULAR HEMOGLOBIN 30 PG (26.0-33.0); MEAN CORPUSCULAR HGB CONC 33 g/dl (31.0-36.0); MEAN CORPUSCULAR VOLUME 89 fL (80-96); MONOCYTES # (AUTO) 0.7 K/uL (0.1-1.30); MONOCYTES % (AUTO) 8.2 % (2.0-12.0); NEUTROPHILS # (AUTO) 5.7 K/uL (1.8-8.9); NEUTROPHILS % (AUTO) 70.7 % (43.0-81.0); PLATELET COUNT (AUTO) 212 K/uL (150-450); RED BLOOD CELL COUNT(AUTO) 4.34 MIL/uL (4.5-6.0); RED CELL DISTRIBUTION WIDTH 13.6 % (11.5-15.0); WHITE BLOOD COUNT (AUTO) 8.1 K/uL (4.3-11.0)
[2024-01-22 08:00] VITALS: BP 130/80; TEMP 97.9; O2SAT 99
[2024-01-22 08:28] LABS: CALCIUM, SERUM 8.9 mg/dL (8.5-10.1); CREATININE 0.8 mg/dL (0.6-1.3); MAGNESIUM 1.9 mg/dL (1.8-2.4); PHOSPHORUS 2.2 mg/dL (2.5-4.9); POTASSIUM 3.8 mmol/L (3.5-5.1)
[2024-01-22 12:00] VITALS: BP 130/70; TEMP 98; O2SAT 99
[2024-01-22] MEDS: ESCITALOPRAM OXALATE (10 MG) 10 MG TABLET PO SCH (15:04)
[2024-01-22] MEDS: K PHOS NEUTRAL 250 MG TABLET PO ONE (15:29)
[2024-01-22 16:00] VITALS: BP 130/70; TEMP 98; O2SAT 99
--- NOTE | 2024-01-22 18:46 | NUR ---
MS RN CLOSING NOTE PATIENT AWAKE IN BED, A/O X4, ABLE TO MAKE NEEDS KNOW, AFEBRILE, AMBULATORY, SITTER AT BEDSIDE. ON ROOM AIR, TOLERATING WELL, BREATHING EVENLY AND UNLABORED WITH SPO2 OF 99%. NO SIGNS OF RESPIRATORY DISTRESS NOTED. PT DENIES ANY PAIN OR ANY DISCOMFORTS AT THIS TIME. PT DENIES ANY OR SOB NOTED AT THIS MOMENT. IV ACCESS ON RIGHT WRIST G#22-SL AND L HAND G# 24 WITH RUNNING NS @ 125ML/HR PATENT, INTACT, AND INFUSING WELL WITH NO S/SX OF PHLEBITIS AND INFILTRATION NOTED. ALL DUE MEDS GIVEN. CARE RENDERED. KEPT PATIENT CLEAN, COMFORTABLE, AND DRY. PATIENT EXPRESSES NO OTHER NEEDS AT THIS TIME. NO FURTHER CONCERNS OF PRESENT. HOB SLIGHTLY ELEVATED. FALL AND SAFETY MEASURES IMPLEMENTED, BED LOCKED AND IN LOWEST POSITION, SIDE RAILS UP X2, CALL LIGHT AND TRAY TABLE WITHIN EASY REACH. BED ALARM ON. WILL ENDORSE TO [facility] SHIFT NURSE FOR NISA. Addendum: 01/22/24 at 1851 by ELDER LOWRY RN INFORMED DR. JUNG THAT PATIENT WANTS TO GO HOME. DOCTOR RESPONDED THAT IT WONT BE POSSIBLE TODAY BECAUSE PSYCH MEDICATION HAS RESUMED. SHE STATED, IT'S OKAY TO DC TOMORROW. WILL ENDORSE TO ANDROID IOS DEVELOPER NURSE
--- NOTE | 2024-01-22 19:20 | NUR ---
PATIENT LEFT AMA, REFUSED TO SIGN AMA FORM, GIRLFRIEND AT BEDSIDE, SITTER OUTSIDE THE ROOM GIVING HAND OFF REPORT, ASKED HER WHO SHE WAS REFUSED TO ANSWER AND SAID PATIENT IS AUTISTIC, PATIENT SAID HE'S AN ADULT HE HAS THE RIGHT TO DECIDE FOR HIMSELF AND NOBODY HAS THE RIGHT TO FORCED HIM TO STAY, HAD SHED WORKERS SUPERVISOR CALL SECURITY, MANAGING PARTNER SHYLA CHECKED IF HE'S ON 5150, PATIENT IS NOT ON HOLD, STILL PATIENT AND GIRLFRIEND CONTINUED TO LEAVE THE UNIT, STARTED YELLING YOU DON'T HAVE THE RIGHT TO HOLD THE PATIENT IN THE UNIT, ADVISED BY MANAGING PARTNER YELENA TO JUST REMOVED THE ID BAND AND IV, WHEN CHECKED PATIENT HE NO LONGER HAVE IV, REMOVED ARM BAND, SECURITY PRESENT, MOTHER OF THE PATIENT CALLED, AND TALKED TO MANAGING PARTNER YELENA. MANAGING PARTNERCAITLIN REED CALLED DOCTOR FABIANA, PER DOCTOR "IT'S OK IF PATIENT LEFT. THERE'S NOTHING WE CAN DO" PATIENT NOT ON HOLD.
--- NOTE | 2024-01-22 19:25 | NUR ---
MS RN NOTE PATIENT LEFT AMA DESPITE EXPLANATION TO STAY, CALLED TO DR JUNG PSYCHIATRIST AND SPOKE WITH HER STATED WHAT CAN YOU DO CANT STOP HIM LET HIM GO , PATIENT IS NOT ON HOLD , WILL CALL RO DR CLAY TO REPORT HER AND ENDORSED TO CAITLIN FITZGERALD NEXT SHIFT
--- NOTE | 2024-01-22 19:26 | NUR ---
MS RN NOTE KENNETH HAWKINS CALLED FOR PATIENT NOTIFIED THAT PATIENT LEFT AMA STATED THAT WILL CALL HIM
--- NOTE | 2024-01-22 19:46 | NUR ---
INFORMED PRIMARY KERZUMA, REGARDING PATIENT LEFT AMA AND DIDN'T SIGN AMA FORM. FORM GRADER OPERATOR SHYLA MADE AWARE.
[2024-01-22] MEDS ORDERED: QUETIAPINE FUMARATE 100 MG TABLET PO SCH (22:00)
[2024-01-30 08:29] LABS: VITAMIN B1 THIAMINE,WB 124.8
== END 2024-01-22 19:22 | disposition left against medical advice (07) | DRG 817 ==
LOC: ER 23:02 → TRANSITION 01-19 12:01 → ICU 01-19 16:20 → MEDSG1 01-21 15:54
PROVIDERS: ADMIT Student in an Organized Health Care Education/Training Program; ATTEND Student in an Organized Health Care Education/Training Program
DX: T43.592A Poisoning by other antipsychotics and neuroleptics, intentional self-harm, initial encounter (principal); G92.8 Other toxic encephalopathy; G25.3 Myoclonus; E83.39 Other disorders of phosphorus metabolism; R56.9 Unspecified convulsions; F32.A Depression, unspecified; F41.9 Anxiety disorder, unspecified; Y92.9 Unspecified place or not applicable; I10 Essential (primary) hypertension; F84.0 Autistic disorder; F12.90 Cannabis use, unspecified, uncomplicated; D64.9 Anemia, unspecified; F39 Unspecified mood [affective] disorder; Z79.899 Other long term (current) drug therapy
CPT/HCPCS: 36415; 70450-TC; 70486-TC; 80048-TC; 80076-TC; 82607-TC; 82962-TC; 83735-TC; 83921; 84100-TC; 84425; 84443-TC; 85025-TC; A4223; A9563; G0378; G0480; J1200; J1630; J2060; J3475; J7030; J7050

== ENCOUNTER 2024-04-23 07:46 | Inpatient (IN) | payer OTHER ==
[~2024-04-23] VITALS: Ht 165.1 cm; Wt 99.8 kg
[~2024-04-23 07:46] MED LIST: DEXT25CA PO; QUET300T72 PO
[2024-04-23 08:12] LABS: BASOPHILS % (AUTO) 0.1 % (0.0-2.0); EOSINOPHILS % (AUTO) 0.1 % (0.0-6.0); HEMATOCRIT 44 % (39-51); HEMOGLOBIN 14.9 g/dL (13.5-17.5); LYMPHOCYTES # (AUTO) 0.7 K/uL (0.8-4.8); LYMPHOCYTES % (AUTO) 5.3 % (20.0-44.0); MEAN CORPUSCULAR HEMOGLOBIN 30 PG (26.0-33.0); MEAN CORPUSCULAR HGB CONC 34 g/dl (31.0-36.0); MEAN CORPUSCULAR VOLUME 88 fL (80-96); MONOCYTES # (AUTO) 0.8 K/uL (0.1-1.30); MONOCYTES % (AUTO) 6.5 % (2.0-12.0); NEUTROPHILS # (AUTO) 11.4 K/uL (1.8-8.9); PLATELET COUNT (AUTO) 234 K/uL (150-450); RED BLOOD CELL COUNT(AUTO) 5.05 MIL/uL (4.5-6.0); RED CELL DISTRIBUTION WIDTH 13.7 % (11.5-15.0)
[2024-04-23 08:24] LABS: ALANINE AMINOTRANSFERASE 31 U/L (12-78); ALBUMIN 4.4 g/dL (3.4-5.0); ALKALINE PHOSPHATASE 81 U/L (46-116); ASPARTATE AMINOTRANSFERASE 22 U/L (15-37); BILIRUBIN,DIRECT 0.3 mg/dL (0.0-0.2); CALCIUM, SERUM 9.9 mg/dL (8.5-10.1); CARBON DIOXIDE 25 mmol/L (21-32); CHLORIDE 106 mmol/L (98-107); CREATININE 1.3 mg/dL (0.6-1.3); GLUCOSE 119 mg/dL (74-106); POTASSIUM 3.6 mmol/L (3.5-5.1); SODIUM SERUM 142 mmol/L (136-145); UREA NITROGEN, BLOOD 17 mg/dL (7-18)
[2024-04-23 08:34] LABS: ACETAMINOPHEN <10 ug/ml (10-30); SALICYLATE < 2.8 mg/dL (2.8-20.0)
[2024-04-23 08:35] LABS: ALCOHOL, BLOOD < 10 mg/dL (0-10)
[2024-04-23] MEDS ORDERED: LORAZEPAM INJ 2 MG/ML VIAL ONE (09:08)
[2024-04-23] MEDS: LORAZEPAM INJ 2 MG/ML VIAL IV ONE (09:14)
[2024-04-23 09:19] LABS: APPEARANCE,URINE CLEAR (CLEAR); BILIRUBIN,URINE NEGATIVE (NEGATIVE); BLOOD, URINE NEGATIVE Ery/uL (NEGATIVE); COLOR,URINE YELLOW (YELLOW); KETONES,URINE NEGATIVE (NEGATIVE); LEUKOCYTE ESTERASE ,URINE NEGATIVE (NEGATIVE); NITRITE, URINE NEGATIVE (NEGATIVE); PH,URINE 5.5 (5.0-8.0); PROTEIN,URINE NEGATIVE (NEGATIVE); UGLUCOSE NEGATIVE (NEGATIVE); UROBILINOGEN,URINE 0.2 EU/dL (0.2)
[2024-04-23 09:24] LABS: AMPHETAMINE, URINE POSITIVE (NEGATIVE); BARBITURATE, URINE NEGATIVE (NEGATIVE); BENZODIAZEPINE, URINE NEGATIVE (NEGATIVE); COCCAINE, URINE NEGATIVE (NEGATIVE); OPIATE, URINE NEGATIVE (NEGATIVE); PHENCYCLIDINE SCREEN,URINE NEGATIVE (NEGATIVE)
[2024-04-23 09:25] LABS: CANNABINOID, URINE POSITIVE (NEGATIVE)
[2024-04-23] MEDS ORDERED: ONDANSETRON HCL/PF 4 MG/2 ML VIAL IVP PRN (11:30)
[2024-04-23] MEDS ORDERED: Z GUARD REMEDY 4 OZ OINT TP PRN (11:30)
[2024-04-23] MEDS ORDERED: MAGNESIUM HYDROXIDE 30 ML UDC PO PRN (11:30)
[2024-04-23] MEDS ORDERED: ACETAMINOPHEN 325 MG TABLET PO PRN (11:30)
[2024-04-23] MEDS ORDERED: MAG HYDROX/AL HYDROX/SIMETH 30 ML UDC PO PRN (11:30)
[2024-04-23 16:00] VITALS: BP 144/90; TEMP 98.2; O2SAT 96
[2024-04-23] MEDS: IV NS 0.9% 1,000 ML IV PRN (17:55)
[2024-04-23 20:00] VITALS: BP 130/108; TEMP 98.9; O2SAT 97
[2024-04-24] VITALS: BP 135/0; TEMP 98; O2SAT 98
[2024-04-24 04:00] VITALS: BP 125/95; TEMP 98.9; O2SAT 97
[2024-04-24 07:31] LABS: BASOPHILS % (AUTO) 0.2 % (0.0-2.0); EOSINOPHILS % (AUTO) 0.4 % (0.0-6.0); HEMATOCRIT 37 % (39-51); HEMOGLOBIN 12.9 g/dL (13.5-17.5); LYMPHOCYTES # (AUTO) 1.8 K/uL (0.8-4.8); LYMPHOCYTES % (AUTO) 23.3 % (20.0-44.0); MEAN CORPUSCULAR HEMOGLOBIN 30 PG (26.0-33.0); MEAN CORPUSCULAR HGB CONC 35 g/dl (31.0-36.0); MEAN CORPUSCULAR VOLUME 88 fL (80-96); MONOCYTES # (AUTO) 0.8 K/uL (0.1-1.30); MONOCYTES % (AUTO) 10.1 % (2.0-12.0); NEUTROPHILS # (AUTO) 5.2 K/uL (1.8-8.9); PLATELET COUNT (AUTO) 197 K/uL (150-450); RED BLOOD CELL COUNT(AUTO) 4.26 MIL/uL (4.5-6.0); RED CELL DISTRIBUTION WIDTH 13.8 % (11.5-15.0); WHITE BLOOD COUNT (AUTO) 7.9 K/uL (4.3-11.0)
[2024-04-24] MEDS ORDERED: ESCI20TA PO (07:37)
[2024-04-24] MEDS ORDERED: QUET400T53 PO (07:37)
[2024-04-24] MEDS ORDERED: QUET100T PO (07:37)
[2024-04-24 07:38] LABS: CREATININE 1.1 mg/dL (0.6-1.3); MAGNESIUM 1.9 mg/dL (1.8-2.4); PHOSPHORUS 3.4 mg/dL (2.5-4.9); POTASSIUM 3.8 mmol/L (3.5-5.1)
[2024-04-24 08:00] VITALS: BP 112/74; TEMP 97.8; O2SAT 97
[2024-04-24 12:00] VITALS: BP 116/67; TEMP 98; O2SAT 100
[2024-04-24] MEDS ORDERED: QUETIAPINE FUMARATE 25 MG TABLET PO PRN (13:00)
[2024-04-24] MEDS: ESCITALOPRAM OXALATE (10 MG) 10 MG TABLET PO SCH (13:13)
[2024-04-24 16:00] VITALS: BP 127/72; TEMP 98.2; O2SAT 100
[2024-04-24 20:00] VITALS: BP 117/67; TEMP 98.4; O2SAT 96
[2024-04-25] VITALS: BP 104/64; TEMP 98.8; O2SAT 98
[2024-04-25 04:00] VITALS: BP 113/81; TEMP 98.2; O2SAT 97
[2024-04-25 08:00] VITALS: BP 120/91; TEMP 98.4; O2SAT 97
[2024-04-25] MEDS ORDERED: ESCI10TA PO (09:50)
[2024-04-25] MEDS ORDERED: Quetiapine Fumarate PO (09:50)
[2024-04-26] MEDS ORDERED: ESCITALOPRAM OXALATE (10 MG) 10 MG TABLET PO SCH (09:00)
== END 2024-04-25 11:32 | disposition home or self-care (01) | DRG 817 ==
LOC: ER 07:49 → TELE-TD 11:23 → TELE1 04-24 13:26
PROVIDERS: ADMIT Internal Medicine; ATTEND Internal Medicine
DX: T43.592A Poisoning by other antipsychotics and neuroleptics, intentional self-harm, initial encounter (principal); R56.9 Unspecified convulsions; F19.10 Other psychoactive substance abuse, uncomplicated; F84.0 Autistic disorder; Y92.9 Unspecified place or not applicable; Z20.822 Contact with and (suspected) exposure to COVID-19; I10 Essential (primary) hypertension; F41.9 Anxiety disorder, unspecified; Z79.899 Other long term (current) drug therapy; Z86.59 Personal history of other mental and behavioral disorders; F39 Unspecified mood [affective] disorder; F90.9 Attention-deficit hyperactivity disorder, unspecified type
CPT/HCPCS: 36415; 80048-TC; 80076-TC; 83735-TC; 84100-TC; 85025-TC; 97112-TC; 97116-TC; 97530-TC; A4223; G0378; G0480; J2060; J7030